=== PATIENT | male | born 1985 | race Two or more races ===

== ENCOUNTER 2021-08-11 01:59 | Emergency (ER) | payer SELFPAY ==
[~2021-08-11] VITALS: Ht 175.3 cm; Wt 73.0 kg
[2021-08-11 02:26] VITALS: BP 154/86
== END 2021-08-11 02:50 | disposition left against medical advice (07) ==
LOC: ER 01:59
DX: Z53.21 Procedure and treatment not carried out due to patient leaving prior to being seen by health care provider (principal); R55 Syncope and collapse
CPT/HCPCS: 93005